=== PATIENT | male | born 2000 | race Caucasian/White ===

== ENCOUNTER 2021-10-24 20:18 | Emergency (ER) | payer SELFPAY, OTHER ==
[2021-10-24] MEDS ORDERED: Methocarbamol 500 MG TAB PO SCH (21:45)
== END 2021-10-24 23:23 | disposition home or self-care (01) ==
LOC: ERS 20:18
DX: S70.01XA Contusion of right hip, initial encounter (principal); S30.0XXA Contusion of lower back and pelvis, initial encounter; V89.2XXA Person injured in unspecified motor-vehicle accident, traffic, initial encounter
CPT/HCPCS: 72100